=== PATIENT | female | born 2000 | race Caucasian/White ===

== ENCOUNTER 2020-02-13 14:56 | Emergency (ER) | payer SELFPAY ==
--- NOTE | 2020-02-13 15:42 | EDM.PDOC ---
ED HPI GENERAL MEDICAL PROBLEM - General Chief Complaint: Skin Complaint Stated Complaint: SUN BURN (BACK) Time Seen by Provider: 02/13/20 15:23 Source of Information: Reports: Patient History Limitations: Reports: No Limitations - History of Present Illness INITIAL COMMENTS - FREE TEXT/NARRATIVE: The patient presents with a sunburn on her back. [place] out at the dye yesterday and did not protect herself. She has no fever or chills. She also wants to be checked for a sexually transmitted disease. She had unprotected sex recently. She would not go into any details. She has no dysuria or discharge. She has no abdominal or pelvis pain. Onset: Gradual Duration: Day(s): Location: Reports: Back Quality: Reports: Burning Severity: Severe Improves with: Reports: None Worsens with: Reports: None Associated Symptoms: Reports: No Other Symptoms Back Pain Score (Numeric/FACES): 8 - Related Data Allergies Allergy/AdvReac Type Severity Reaction Status Date / Time No Known Allergies Allergy Verified 02/13/20 15:33 Home Meds: Home Meds . [No Known Home Meds] 02/13/20 [History] Past Medical History - Past Health History Medical/Surgical History: Denies Medical/Surgical History Social & Family History - Family History Family Medical History: Noncontributory - Tobacco Use Smoking Status *Q: Never Smoker Second Hand Smoke Exposure: No - Caffeine Use Caffeine Use: Reports: None - Recreational Drug Use Recreational Drug Use: No ED ROS GENERAL - Review of Systems Review Of Systems: See Below Constitutional: Reports: No Symptoms HEENT: Reports: No Symptoms Respiratory: Reports: No Symptoms Cardiovascular: Reports: No Symptoms Endocrine: Reports: No Symptoms GI/Abdominal: Reports: No Symptoms : Reports: No Symptoms Musculoskeletal: Reports: No Symptoms Skin: Reports: Other (Erythema and pain to her upper back) ED EXAM, SKIN/RASH Exam: See Below Exam Limited By: No Limitations General Appearance: Alert, No Apparent Distress Ears: Normal External Exam Throat/Mouth: Normal Inspection Head: Atraumatic, Normocephalic Neck: Normal Inspection Respiratory/Chest: No Respiratory Distress, Lungs Clear, Normal Breath Sounds Cardiovascular: Regular Rate, Rhythm, No Edema, No Murmur GI/Abdominal: Soft, Non-Tender, No Organomegaly, No Mass Back Exam: Other (Erythema of the upper back with pain upon palpation) Extremities: Normal Inspection Neurological: Alert, Oriented, No Motor/Sensory Deficits Course - Vital Signs Last Recorded V/S: Last Vital Signs Temp 97.9 F 02/13/20 15:29 Pulse 67 02/13/20 15:29 Resp 18 02/13/20 15:29 BP 118/70 02/13/20 15:29 Pulse Ox 100 02/13/20 15:29 - Orders/Labs/Meds Orders: Active Orders 24 hr Category Date Time Status GC/CHLAMYDIA BY PCR [[facility]] Stat Lab 02/13/20 16:12 Received Meds: Medications Discontinued Medications Generic Name Dose Route Start Last Admin Trade Name Kendrick PRN Reason Stop Dose Admin Bacitracin 1 gm 02/13/20 16:13 02/13/20 16:19 Bacitracin Oint TOP 02/13/20 16:14 1 gram ONETIME ONE Administration Ibuprofen 600 mg 02/13/20 16:13 02/13/20 16:18 Motrin PO 02/13/20 16:14 600 mg ONETIME ONE Administration - Re-Assessments/Exams Free Text/Narrative Re-Assessment/Exam: 02/13/20 15:42 I ordered a gonorrhea and chlamydia by PCR. Departure - Departure Time of Disposition: 16:45 Disposition: Home, Self-Care 01 Condition: Good Clinical Impression: Sunburn - Discharge Information *PRESCRIPTION DRUG MONITORING PROGRAM REVIEWED*: Not Applicable *COPY OF PRESCRIPTION DRUG MONITORING REPORT IN PATIENT JUAN: Not Applicable Referrals: Estelle Vazquez PA-C [Primary Care Provider] - Forms: ED Department Discharge Additional Instructions: Clean your sunburn with warm soapy water 2 times per day and apply antibiotic ointment after. Take motrin, aleve or aspirin for the pain. These medications will also help with the inflammation. I will call you with results within an hour. Please return if you are worse. Sepsis Event Note (ED) - Evaluation Sepsis Screening Result: No Definite Risk - Focused Exam Vital Signs: Vital Signs Temp Pulse Resp BP Pulse Ox 02/13/20 15:29 97.9 F 67 18 118/70 100 - My Orders Last 24 Hours: My Active Orders 02/13/20 16:12 GC/CHLAMYDIA BY PCR [[facility]] Stat - Assessment/Plan Last 24 Hours: My Active Orders 02/13/20 16:12 GC/CHLAMYDIA BY PCR [[facility]] Stat
[2020-02-13] MEDS ORDERED: Ibuprofen 600 MG Tab PO ONE (16:13)
[2020-02-13] MEDS ORDERED: Bacitracin Oint 15 GM Tube TOP ONE (16:13)
[2020-02-13 17:57] LABS: C. TRACHOMATIS BY PCR DETECTED; N. GONORRHOEAE BY PCR NOT DETECTED
== END 2020-02-13 16:51 | disposition home or self-care (01) ==
LOC: JD.ED 14:56
DX: L55.9 Sunburn, unspecified (principal)
CPT/HCPCS: 87491; 87591; 99283; A9270

== ENCOUNTER 2022-02-18 22:06 | Emergency (ER) | payer SELFPAY | END 2022-02-19 00:50 | disposition home or self-care (01) | LOC: JD.ED 22:06 | DX: S16.1XXA Strain of muscle, fascia and tendon at neck level, initial encounter (principal); S00.83XA Contusion of other part of head, initial encounter; W21.07XA Struck by softball, initial encounter | CPT/HCPCS: 70450; 70450-26; 70486; 70486-26; 72125; 72125-26; 81025; 99283 ==